=== PATIENT | female | born 1985 | race Caucasian/White ===

== ENCOUNTER 2016-10-29 05:26 | Day surgery (SDC) | payer OTHER ==
--- NOTE | 2016-10-28 18:08 | PREOPHP ---
DATE OF ADMISSION: 10/29/2016 REASON FOR ADMISSION: She is to be admitted tomorrow, 10/29/2016, for laparoscopic tubal ligation. HISTORY OF PRESENT ILLNESS: This is a 31-year-old female, 3, para 3, who had 3 normal vagin al deliveries and has decided to be sterilized for permanent control. The alternatives to oth er control methods to benefits, the risks, and possible complications of procedure as well as 1% failure rate of it, was discussed at great length with the patient in the office. All questions were answered to her satisfaction, and she signed the appropriate surgical informed consent. PAST MEDICAL HISTORY: The patient denies any medical problems including diabetes, cardiovascular di sease, liver disease, renal disease, neurological disease, or thyroid problems. ALLERGIES: NO KNOWN ALLERGIES. MEDICATIONS: She takes none. OBSTETRICAL HISTORY: She had 3 normal pregnancies with 3 normal vaginal deliveries. REVIEW OF SYSTEMS: A 12-point review of systems is noncontributory. FAMILY HISTORY: Noncontributory. PHYSICAL EXAMINATION: GENERAL: Well-developed and nourished, in no distress, alert and oriented x3. Height is 5 feet 4 i nches and weight 164 pounds with BMI of 28. VITAL SIGNS: Blood pressure is 107/67, respirations 16 per minute, the pulse is 72 per minute and r egular, temperature is 98. HEENT: Within normal limits. Pupils are PERRLA. NECK: Supple. Thyroid is not palpable. There is no lymphadenopathy. BREASTS: Normal. No lumps. LUNGS: Clear to percussion and auscultation. HEART: Normal sinus rhythm without a murmur. ABDOMEN: Soft. There are no megalies or hernias. PELVIC: Normal external genitalia. Cervix is normal. Uterus small in the midline. There are no a dnexal masses. EXTREMITIES: Within normal limits. NEUROLOGIC: Also normal. IMPRESSION: Multiparity. The patient desires sterilization. PLAN: She is to be admitted for laparoscopic tubal ligation, possible laparotomy if necessary. Dictated By: KENYON TAPIA/LOLA Conf#: [id number] DID#: [id number]
[2016-10-29] VITALS (12 sets, daily range): BP systolic 83–116; BP diastolic 52–59; PULSE 64–70; RESP 12–18; Ht 162.6 cm; Wt 75.6 kg
[~2016-10-29] VITALS: Ht 162.6 cm; Wt 75.6 kg
[2016-10-29] MEDS ORDERED: LACTATED RINGER'S 1,000 ML IV* SCH (05:30)
[2016-10-29] MEDS ORDERED: BUPIVACAINE 0.5%/EPI (SDV) 30 ML INJ ONE (06:43)
[2016-10-29] MEDS ORDERED: MEPERIDINE 100 MG INJ ONE (07:29)
[2016-10-29] MEDS ORDERED: SUCCINYLCHOLINE CHLORIDE 100 MG/5 ML SYG IV ONE (07:29)
[2016-10-29] MEDS ORDERED: ROCURONIUM 50 MG INJ ONE (07:29)
[2016-10-29] MEDS ORDERED: LIDOCAINE 2% (SDV) 5 ML INJ ONE (07:29)
[2016-10-29] MEDS ORDERED: NEOSTIGMINE 3 MG/3 ML SYRINGE ONE ×2 (07:29→07:54)
[2016-10-29] MEDS ORDERED: GLYCOPYRROLATE 0.4 MG INJ ONE ×2 (07:29→07:54)
[2016-10-29] MEDS ORDERED: PROPOFOL 20 ML ONE (07:29)
[2016-10-29] MEDS ORDERED: CEFAZOLIN 1 GM INJ ONE (07:53)
[2016-10-29] MEDS ORDERED: ONDANSETRON 4 MG INJ ONE (07:54)
[2016-10-29] MEDS ORDERED: METOCLOPRAMIDE 10 MG INJ ONE (07:54)
[2016-10-29] MEDS ORDERED: LACTATED RINGER'S 1,000 ML IV SCH (08:19)
--- NOTE | 2016-10-29 08:23 | PD.PPDC ---
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
[2016-10-29] MEDS ORDERED: IBUPROFEN 600 MG TAB PO PRN (08:30)
[2016-10-29] MEDS ORDERED: ONDANSETRON 4 MG INJ IV PRN ×2 (08:30→09:00)
[2016-10-29] MEDS ORDERED: morphine 2 MG INJ IV PRN (08:30)
[2016-10-29] MEDS ORDERED: ACETAMINOPHEN 325 MG TAB PO PRN (08:30)
[2016-10-29] MEDS ORDERED: OXYCODONE/ACETAMINOPHEN (5/325) TAB PO PRN ×2 (08:30)
[2016-10-29] MEDS ORDERED: hydrALAzine 20 MG INJ IV PRN (09:00)
[2016-10-29] MEDS ORDERED: HYDROmorphONE (0.2 MG/ML) 10ML SYG IV PRN ×2 (09:00)
[2016-10-29] MEDS ORDERED: EPHEDrine SULFATE 50 MG/5 ML SYG IV PRN (09:00)
[2016-10-29] MEDS ORDERED: DIPHENHYDRAMINE 50 MG INJ IV PRN (09:00)
[2016-10-29] MEDS ORDERED: METOCLOPRAMIDE 10 MG INJ IV PRN (09:00)
[2016-10-29] MEDS ORDERED: MEPERIDINE 25 MG INJ IV PRN (09:00)
[2016-10-29] MEDS ORDERED: FENTAnyl 50 MCG/ML VIAL IV PRN ×2 (09:00)
[2016-10-29] MEDS ORDERED: morphine (1 MG/ML) 10ML SYRINGE IV PRN ×2 (09:00)
[2016-10-29] MEDS ORDERED: LABETALOL HCL 20MG INJ IV PRN (09:00)
[2016-10-29] MEDS ORDERED: MIDAZOLAM 1 MG/ML 2 ML INJ IV PRN (09:00)
--- NOTE | 2016-10-29 09:05 | OPR ---
DATE OF OPERATION: 10/29/2016 PREOPERATIVE DIAGNOSES: Multiparity. POSTOPERATIVE DIAGNOSIS: Multiparity. OPERATION PERFORMED: Laparoscopic bilateral tubal ligation. SURGEON: Kenyon Nicole MD ANESTHESIA: General. ANESTHESIOLOGIST: Dr. Tarango COMPLICATIONS: None. SPECIMENS: None. ESTIMATED BLOOD LOSS: Minimal. PROCEDURE AND FINDINGS: With the patient under general anesthesia, she was laid on the table in the dorsal lithotomy position. Her abdomen was prepped with ChloraPrep and the perineum and vagina wit h Betadine. After 3 minutes, she was draped in the usual sterile fashion for this procedure. The b ladder had been catheterized and emptied. A small incision was done at the level of the umbilicus t hrough which a Veress needle was inserted while we were tenting up the anterior abdominal wall. Onc e the tip of the needle was ascertained to be intraperitoneal by the hanging drop saline technique, it was then connected to the CO2 insufflator. Good pneumoperitoneum was obtained. Then, the needle was removed. A 5 mm trocar was passed in while we were tenting up the anterior abdominal wall. Th rough this port, a 5 mm laparoscope with the Endo camera was inserted. The patient was placed in Tr endelenburg position. The pelvic organs were found to be normal, free of pathology. The second por t was done under direct vision in the hypogastric area with another 5 mm trocar. Through this troca r now, the Kleppinger clamp with the gyrus device at 35 ashraf of current was inserted. The left tub e was picked up in its mid portion and burned through and through for 1.5 cm. The same was done on the contralateral side. There was no bleeding or complications. Pictures were taken for documentat ion. All the instruments were removed from the patient's abdomen. The incisions were infiltrated w ith 0.5% Marcaine with epinephrine, a total of 20 mL. They were closed with 4-0 Monocryl sutures. They were dressed with a Band-Aid. The patient withstood the procedure well and was taken to recove ry room with all vital signs stable. Needle, sponge, and instrument count at the end of the procedu re was correct twice. Dictated By: KENYON TAPIA/NTS Conf#: [id number] DID#: [id number]
== END 2016-10-29 10:05 | disposition home or self-care (01) ==
LOC: SDS 05:26
PROVIDERS: ATTEND Specialist
DX: Z30.2 Encounter for sterilization (principal)
CPT/HCPCS: 58670; J0690; J2175; J2405; J2710; J2765; J7999; Z7512; Z7610